=== PATIENT | male | born 1955 | race African-American/Black ===

== ENCOUNTER → 2017-08-03 | Outpatient (CLI) | payer MEDICARE, MEDICAID ==
[~2017-08-03] MED LIST: ACET-3161 PO; AMIT25TA9 PO; ASPI-1159 PO; CYCL5TAB PO; METO-396 PO; ROSU20TA PO; SIMV10TA6 PO; ZOLP10TA6 PO
== END | disposition home or self-care (01) ==
LOC: RAD 11:16
PROVIDERS: ATTEND Family Medicine
DX: J18.9 Pneumonia, unspecified organism (principal)
CPT/HCPCS: 71046

== ENCOUNTER → 2017-09-05 | Outpatient (CLI) | payer MEDICARE, MEDICAID | END | disposition home or self-care (01) | LOC: RAD 16:26 | PROVIDERS: ATTEND Podiatrist Foot & Ankle Surgery | DX: M76.61 Achilles tendinitis, right leg (principal); M76.62 Achilles tendinitis, left leg; M25.775 Osteophyte, left foot | CPT/HCPCS: 73630 ==

== ENCOUNTER → 2018-07-26 | Outpatient (CLI) | payer MEDICARE, MEDICAID ==
[~2018-07-26] MED LIST changes: -METO-396 PO
== END | disposition home or self-care (01) ==
LOC: RAD 09:40
PROVIDERS: ATTEND Family Medicine
DX: M54.9 Dorsalgia, unspecified (principal)
CPT/HCPCS: 72070

== ENCOUNTER 2020-08-29 22:11 | Emergency (ER) | payer MEDICARE, MEDICAID ==
[~2020-08-29] VITALS: Ht 177.8 cm; Wt 82.0 kg
[~2020-08-29 22:11] MED LIST changes: -ASPI-1159 PO; +ASPI-1497 PO; -ROSU20TA PO; +ROSU20TA2 PO; -SIMV10TA6 PO; +SIMV10TA97 PO
[2020-08-29] MEDS ORDERED: KETOROLAC 30MG/ML VIAL IV STA (23:18)
[2020-08-29 23:49] LABS: BASOPHILS % 0.5 % (0.0-2.0); EOSINOPHILS % 1.4 % (0.0-5.0); HEMATOCRIT. 44.1 % (42.0-52.0); HEMOGLOBIN. 15.5 g/dL (14.0-18.0); LYMPHOCYTES % 35.2 % (20.0-50.0); MEAN CORPUSCULAR HEMOGLOBIN 31.1 pg (28.0-32.0); MEAN CORPUSCULAR VOLUME 88.8 fL (80.0-94.0); MEAN PLATELET VOLUME 7.4 fl (7.4-10.4); MONOCYTES % 8.4 % (2.0-8.0); NEUTROPHILS % 54.5 % (40.0-76.0); PLATELET 200 x1000/uL (130-400); RED BLOOD CELL COUNT 4.97 mill/uL (4.7-6.1); RED CELL DISTRIBUTION WIDTH 12.9 % (11.6-14.6)
[2020-08-29 23:59] LABS: PROTHROMBIN TIME 10.3 sec (9.6-11.0)
[2020-08-30] LABS: CHLORIDE 106 mEq/L (98-107)
[2020-08-30 00:47] LABS: CLARITY URINE CLEAR (CLEAR); COLOR URINE YELLOW (YELLOW); KETONES URINE NEGATIVE (NEGATIVE); LEUKOCYTE ESTERASE URINE NEGATIVE (NEGATIVE); NITRITE URINE NEGATIVE (NEGATIVE); OCCULT BLOOD URINE NEGATIVE (NEGATIVE); PH URINE 5.5 (4.5-8.0); PROTEIN URINE NEGATIVE (NEGATIVE); SPECIFIC GRAVITY URINE 1.015 (1.005-1.030); UROBILINOGEN URINE 0.2 E.U./dL (0.2-1.0)
[2020-08-30] MEDS ORDERED: TOPUD PO (01:10)
[2020-08-30 01:30] VITALS: BP 154/91
== END 2020-08-30 01:30 | disposition home or self-care (01) ==
LOC: ER 22:11
DX: R10.31 Right lower quadrant pain (principal); Z79.899 Other long term (current) drug therapy; Z79.82 Long term (current) use of aspirin; Z98.890 Other specified postprocedural states; Z90.49 Acquired absence of other specified parts of digestive tract
CPT/HCPCS: 36415; 74176; 80053; 81003; 83690; 85025; 85610; 93005; 96374; 99285; J1885

== ENCOUNTER 2021-04-01 11:14 | Inpatient (IN) | payer MEDICARE, MEDICAID ==
[~2021-04-01] VITALS: Ht 172.7 cm; Wt 98.9 kg
[~2021-04-01 11:14] MED LIST changes: +TOPUD PO
[2021-04-01] MEDS ORDERED: ASPIRIN 81MG TABLET PO ONE (11:45)
[2021-04-01] MEDS ORDERED: NITROGLYCERIN 0.4MG TABLET SL SL PRN (11:45)
[2021-04-01 12:25] LABS: BASOPHILS % 0.3 % (0.0-2.0); HEMATOCRIT. 46.9 % (42.0-52.0); HEMOGLOBIN. 16.3 g/dL (14.0-18.0); LYMPHOCYTES % 25.8 % (20.0-50.0); MEAN CORPUSCULAR HEMOGLOBIN 31.2 pg (28.0-32.0); MEAN CORPUSCULAR VOLUME 89.8 fL (80.0-94.0); MEAN PLATELET VOLUME 8.4 fl (7.4-10.4); NEUTROPHILS % 64.9 % (40.0-76.0); PLATELET 192 x1000/uL (130-400); RED BLOOD CELL COUNT 5.22 mill/uL (4.7-6.1)
[2021-04-01 12:37] LABS: CHLORIDE 109 mEq/L (98-107)
[2021-04-01 12:44] LABS: LDL CHOLESTEROL 71 mg/dL (5-100)
[2021-04-01 12:46] LABS: HDL CHOLESTEROL 58 mg/dL (40-59)
[2021-04-01] MEDS ORDERED: DIPHENHYDRAMINE 50MG/ML VIAL IV PRN (15:00)
[2021-04-01] MEDS ORDERED: GUAIFENESIN 200MG/10ML SUGAR FREE UDC PO PRN (15:00)
[2021-04-01] MEDS ORDERED: HYDROCODONE/ACETAMINOPHEN 5/325MG TABLET PO PRN (15:00)
[2021-04-01] MEDS ORDERED: DOCUSATE SODIUM 100MG CAPSULE PO PRN (15:00)
[2021-04-01] MEDS ORDERED: MAGNESIUM/ALUMINUM HYDROXIDE/SIMETHICONE 30ML UDC PO PRN (15:00)
[2021-04-01] MEDS ORDERED: ACETAMINOPHEN 325MG TABLET PO PRN ×3 (15:00→15:45)
[2021-04-01] MEDS ORDERED: IPRATROPIUM/ALBUTEROL 0.5-3(2.5)MG/3ML NEB HHN PRN (15:00)
[2021-04-01] MEDS ORDERED: CLONIDINE 0.1MG TABLET PO PRN (15:00)
[2021-04-01] MEDS ORDERED: HEPARIN 1000 UNITS/ML 10ML ONE (15:07)
[2021-04-01] MEDS ORDERED: LIDOCAINE HCL 1% 30ML VIAL (10MG/ML) ONE (15:08)
[2021-04-01] MEDS ORDERED: IODIXANOL 320MG/ML 100 ML BOTTLE IV ONE (15:08)
[2021-04-01] MEDS ORDERED: MIDAZOLAM HCL 2 MG/2 ML VIAL ONE (15:17)
[2021-04-01] MEDS ORDERED: FENTANYL CITRATE/PF 50MCG/ML 2ML VIAL ONE (15:18)
[2021-04-01] MEDS ORDERED: IOHEXOL-300 100 ML BOTTLE ONE (15:31)
[2021-04-01] MEDS ORDERED: ATROPINE SULFATE 1MG/10ML SYR IV PRN (15:45)
[2021-04-01] MEDS ORDERED: NALOXONE HCL 0.4MG/ML VIAL IV PRN (15:45)
[2021-04-01] MEDS ORDERED: ONDANSETRON HCL 4MG/2ML INJ IV PRN (15:45)
[2021-04-01] MEDS ORDERED: CLOPIDOGREL 75MG TABLET ONE (15:48)
[2021-04-01] MEDS ORDERED: ASPIRIN 325MG EC TABLET PO ONE (15:48)
[2021-04-01 17:11] VITALS: BP 152/71
[2021-04-01 17:30] VITALS: BP 128/76
[2021-04-01 20:00] VITALS: BP 142/82
[2021-04-01] MEDS ORDERED: ZOLPIDEM TARTRATE 5MG TABLET PO PRN (21:00)
[2021-04-01] MEDS ORDERED: ATORVASTATIN CALCIUM 20MG TABLET PO SCH (21:00)
[2021-04-01 22:00] VITALS: BP 115/98
[2021-04-02] VITALS (9 sets, daily range): BP systolic 104–156; BP diastolic 65–97
[2021-04-02] MEDS ORDERED: ASPIRIN 81MG TABLET PO SCH (09:00)
[2021-04-02] MEDS ORDERED: THIAMINE HCL 100MG TABLET PO SCH (09:00)
[2021-04-02] MEDS ORDERED: CLOPIDOGREL 75MG TABLET PO SCH (09:15)
[2021-04-02 10:57] LABS: BASOPHILS % 0.4 % (0.0-2.0); HEMATOCRIT. 45.5 % (42.0-52.0); HEMOGLOBIN. 15.2 g/dL (14.0-18.0); LYMPHOCYTES % 21.1 % (20.0-50.0); MEAN CORPUSCULAR HEMOGLOBIN 30.3 pg (28.0-32.0); MEAN CORPUSCULAR VOLUME 90.6 fL (80.0-94.0); MEAN PLATELET VOLUME 8.6 fl (7.4-10.4); MONOCYTES % 9.5 % (2.0-8.0); PLATELET 189 x1000/uL (130-400); RED BLOOD CELL COUNT 5.03 mill/uL (4.7-6.1); RED CELL DISTRIBUTION WIDTH 13.7 % (11.6-14.6)
[2021-04-02 12:01] LABS: CHLORIDE 106 mEq/L (98-107)
[2021-04-02 12:11] LABS: CREATINE KINASE 120 IU/L (39-308)
== END 2021-04-02 15:07 | disposition home or self-care (01) | DRG 247 ==
LOC: ER 11:14 → 3WST 17:20
PROVIDERS: ADMIT Specialist; ATTEND Specialist
PROC: 027034Z Dilation of Coronary Artery, One Artery with Drug-eluting Intraluminal Device, Percutaneous Approach (ICD-10-PCS; principal; 2021-04-01)
PROC: 4A023N7 Measurement of Cardiac Sampling and Pressure, Left Heart, Percutaneous Approach (ICD-10-PCS; 2021-04-01)
PROC: B211YZZ Fluoroscopy of Multiple Coronary Arteries using Other Contrast (ICD-10-PCS; 2021-04-01)
PROC: B215YZZ Fluoroscopy of Left Heart using Other Contrast (ICD-10-PCS; 2021-04-01)
DX: I25.110 Atherosclerotic heart disease of native coronary artery with unstable angina pectoris (principal); E78.5 Hyperlipidemia, unspecified; I10 Essential (primary) hypertension; N40.0 Benign prostatic hyperplasia without lower urinary tract symptoms; Z60.2 Problems related to living alone; Z20.822 Contact with and (suspected) exposure to COVID-19; E78.00 Pure hypercholesterolemia, unspecified; Z79.82 Long term (current) use of aspirin; Z79.899 Other long term (current) drug therapy; Z90.49 Acquired absence of other specified parts of digestive tract; I25.2 Old myocardial infarction
CPT/HCPCS: 36415; 71045; 80048; 80053; 80061; 82550; 83735; 83880; 84443; 84484; 85025; 85347; 87426; 92928; 93005; 93458; 99285; C1769; C1874; C1887; C1893; J1644; J2250; J3010; J3490; Q9967